=== PATIENT | male | born 1990 | race Caucasian/White ===

== ENCOUNTER 2021-11-29 20:44 | Emergency (ER) | payer SELFPAY ==
[~2021-11-29] VITALS: Ht 180.3 cm; Wt 95.3 kg
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
--- NOTE | 2021-11-29 21:34 | NUR ---
Liban kovacs in [facility] - 11/29/21 at 2150 by [facility] US TECH AT PT'S BEDSIDE
--- NOTE | 2021-11-29 21:34 | NUR ---
URINE COLLECTED AND SENT TO LAB
[2021-11-29] MEDS ORDERED: CT SWABBABLE VALVE TRANS SET 1 EA INFUS.SET MC ONE (21:42)
[2021-11-29] MEDS ORDERED: IOHEXOL-300 100 ML VIAL IV ONE (21:42)
[2021-11-29] MEDS ORDERED: IV NS 0.9% 250 ML IV ONE (21:42)
[2021-11-29] MEDS ORDERED: HYDROCODONE/APAP 5/325MG TABLET ONE (21:56)
[2021-11-29 22:00] LABS: BILIRUBIN,URINE NEGATIVE (NEGATIVE); COLOR,URINE YELLOW (YELLOW); LEUKOCYTE ESTERASE ,URINE NEGATIVE (NEGATIVE); NITRITE, URINE NEGATIVE (NEGATIVE); PH,URINE 6.5 (5.0-8.0); PROTEIN,URINE NEGATIVE (NEGATIVE); UGLUCOSE NEGATIVE (NEGATIVE)
[2021-11-29] MEDS ORDERED: HYDROCODONE/APAP 5/325MG TABLET PO ONE (22:00)
--- NOTE | 2021-11-29 22:19 | NUR ---
IV CANNULA INSERTED ON RIGHT AC G20. BLOOD DRAWN AND SENT TO LAB
--- NOTE | 2021-11-29 22:19 | NUR ---
XRAY DONE AT BEDSIDE
[2021-11-29 22:29] LABS: BACTERIA,URINE Rare /HPF (None Seen); RBC,URINE 0-2 /HPF (0-2); SQUAMOUS EPITHELIAL CELL,UR Few /HPF (None Seen)
--- NOTE | 2021-11-29 22:42 | NUR ---
BROUGHT TO CT SCAN
[2021-11-29 22:52] LABS: BASOPHILS % (AUTO) 0.4 % (0.0-2.0); EOSINOPHILS % (AUTO) 4.9 % (0.0-6.0); HEMATOCRIT 44 % (39-51); HEMOGLOBIN 14.4 g/dL (13.5-17.5); LYMPHOCYTES # (AUTO) 2.8 K/uL (0.8-4.8); LYMPHOCYTES % (AUTO) 34.1 % (20.0-44.0); MEAN CORPUSCULAR HGB CONC 33 g/dl (31.0-36.0); MEAN CORPUSCULAR VOLUME 86 fL (80-96); MONOCYTES # (AUTO) 0.8 K/uL (0.1-1.30); MONOCYTES % (AUTO) 10.1 % (2.0-12.0); NEUTROPHILS # (AUTO) 4.1 K/uL (1.8-8.9); NEUTROPHILS % (AUTO) 50.5 % (43.0-81.0); PLATELET COUNT (AUTO) 205 K/uL (150-450); RED BLOOD CELL COUNT(AUTO) 5.14 MIL/uL (4.5-6.0); WHITE BLOOD COUNT (AUTO) 8.2 K/uL (4.3-11.0)
[2021-11-29 22:57] LABS: CALCIUM, SERUM 8.9 mg/dL (8.5-10.1); CREATININE 0.9 mg/dL (0.6-1.3); POTASSIUM 4.1 mmol/L (3.5-5.1)
[2021-11-29 23:03] LABS: ALBUMIN 3.8 g/dL (3.4-5.0); BILIRUBIN,DIRECT 0.1 mg/dL (0.0-0.2); BILIRUBIN,TOTAL 0.3 mg/dL (0.2-1.0); TOTAL PROTEIN, SERUM 7.5 g/dL (6.4-8.2)
[2021-11-29] MEDS ORDERED: HYDR-3972 PO (23:45)
--- NOTE | 2021-11-29 23:56 | NUR ---
Patient discharged to home in stable condition. Written and verbal after care instructions given. Patient verbalizes understanding of instruction.IV removed. Catheter intact and site benign. Pressure and 4x4 applied to site. No bleeding noted.Incentive spirometry teaching provided and pt verbalized understanding and also confirmed via teachback method. Pt ambulated out of ER with steady gait
[2021-11-29 23:59] VITALS: BP 146/72
== END 2021-11-30 | disposition home or self-care (01) ==
LOC: ER 21:13
DX: S22.43XA Multiple fractures of ribs, bilateral, initial encounter for closed fracture (principal); R10.11 Right upper quadrant pain; E78.00 Pure hypercholesterolemia, unspecified; Z60.2 Problems related to living alone; Z79.899 Other long term (current) drug therapy; W18.30XA Fall on same level, unspecified, initial encounter; Y93.89 Activity, other specified; Y92.89 Other specified places as the place of occurrence of the external cause; Y99.8 Other external cause status
CPT/HCPCS: 99285; 74177; 71100; 85025; 80048; 83690; 80076; 81001; 36415; 85730; J7050; Q9967